=== PATIENT | male | born 1945 ===

== ENCOUNTER 2021-12-12 05:35 | Observation (INO) ==
[2021-12-12] MEDS ORDERED: Buffered Lidocaine 1% SYRIN 1 ml INTRADERM ONE (06:00)
[2021-12-12] MEDS ORDERED: Lactated Ringers 1000 ml BAG 1,000 ML IV SCH (06:00)
[2021-12-12] MEDS ORDERED: ceFAZolin 2 GM in NS PREMIX 2 GM/100 ML BAG IVPB ONE (06:17)
[2021-12-12 06:50] LABS: Rapid COVID-19 Molecular Undetected (Undetected)
[2021-12-12] MEDS ORDERED: Vancomycin 1,000 MG VIAL ONE (07:10)
[2021-12-12] MEDS ORDERED: Midazolam 5 mg/5 ml VIAL 1 mg/ml 5 ml VIAL (5 mg) ONE (07:30)
[2021-12-12] MEDS ORDERED: fentaNYL 250 mcg/5 ml 50 MCG/ML 5 ml VIAL (250 MCG) ONE (07:31)
[2021-12-12] MEDS ORDERED: Naloxone 0.4 mg VIAL 0.4 mg/ml 1 ml VIAL IV PRN (09:43)
[2021-12-12] MEDS ORDERED: oxyCODONE/Acetamin 5/325 mg TAB PO PRN (09:43)
[2021-12-12] MEDS ORDERED: fentaNYL 100 mcg/2 ml 50 MCG/ML VIAL IV PRN (09:43)
[2021-12-12] MEDS ORDERED: Ondansetron 4 mg VIAL 2 MG/ML 2 ml VIAL IV PRN ×2 (09:43→10:10)
[2021-12-12] MEDS ORDERED: Morphine 2 MG/ML SYRINGE IV PRN (10:10)
[2021-12-12] MEDS ORDERED: Lactulose 30 ml UDC PO PRN (10:10)
[2021-12-12] MEDS ORDERED: Ondansetron ODT 4 mg TAB 4 MG TAB PO PRN (10:10)
[2021-12-12] MEDS ORDERED: Magnesium Hydroxide LIQ 30 ML UDC PO PRN (10:10)
[2021-12-12] MEDS: Lactated Ringers 1000 ml BAG 1,000 ML IV SCH (14:23)
[2021-12-12] MEDS: ceFAZolin 1 GM ADVAN 1 GM in NS 0.9% 50 ML 50 ML IVPB SCH ×2 (15:50→23:49)
[2021-12-12] MEDS ORDERED: MAGNESIUM 250 MG PO SCH (21:00)
[2021-12-12] MEDS: Magnesium Hydroxide LIQ 30 ML UDC PO SCH (21:46)
[2021-12-13] MEDS: Lactated Ringers 1000 ml BAG 1,000 ML IV SCH (03:38)
[2021-12-13 05:10] LABS: Hematocrit 29 % (42-52); Mean Platelet Volume 8.9 fL (7.4-10.4); Platelet Count 173 10^3/uL (150-450)
[2021-12-13 05:42] LABS: Calcium 8.6 mg/dL (8.6-10.3); Potassium 3.6 mmol/L (3.5-5.0); eGFR CKD-EPI 91.5 (>60)
[2021-12-13] MEDS: ceFAZolin 1 GM ADVAN 1 GM in NS 0.9% 50 ML 50 ML IVPB SCH (07:52)
[2021-12-13] MEDS: Magnesium Hydroxide LIQ 30 ML UDC PO SCH (07:55)
[2021-12-13] MEDS ORDERED: Vitamin THERAPEUTIC TAB PO SCH (09:00)
[2021-12-13 11:08] VITALS: BP 110/49
== END 2021-12-13 13:18 | disposition home or self-care (01) ==
LOC: SSU 05:35 → OR 05:35
PROVIDERS: ADMIT Orthopaedic Surgery; ATTEND Orthopaedic Surgery